=== PATIENT | female | born 1940 | race Caucasian/White ===

== ENCOUNTER → 2016-12-04 | Outpatient (CLI) | payer OTHER, BC ==
[~2016-12-04] MED LIST: AMPH12.5 PO; APOA1CAP PO; ASCO10003 PO; CHOL20007 PO; COEN1CAP28 PO; DESV100T PO; JUICE PLUS PO; MISCCAP80 PO; MULT-506 PO; OMEG10007 PO; VITA1TAB4 PO
--- NOTE | 2016-12-04 10:29 | DIAGNOSTIC IMAGING REPORT ---
BILIARY ULTRASOUND CLINICAL HISTORY: Hepatic cyst COMPARISON STUDY: 11/21/2015 FINDINGS: The pancreas appears sonographically normal. There is a caudate lobe hepatic cyst measuring 15 mm. This remains essentially unchanged in size. The gallbladder appears sonographically normal. There is no right-sided hydronephrosis. The common bile duct measures 4 mm. IMPRESSION: Essentially stable 15 mm caudate lobe hepatic cyst. Otherwise normal study Electronically signed by: Dima Carroll M.D. 12/04/2016 10:27 AM Dictated Date/Time: 12/04/2016 10:25 AM
== END | disposition home or self-care (01) ==
LOC: C.ULTRBC 09:00
PROVIDERS: ATTEND Internal Medicine
DX: K76.89 Other specified diseases of liver (principal)

== ENCOUNTER → 2017-03-05 | Outpatient (CLI) | payer OTHER, BC | END | disposition home or self-care (01) | LOC: C.PAPS 11:28 | PROVIDERS: ATTEND Obstetrics & Gynecology | DX: Z12.4 Encounter for screening for malignant neoplasm of cervix (principal) ==

== ENCOUNTER → 2017-03-05 | Outpatient (CLI) | payer OTHER, BC ==
--- NOTE | 2017-03-05 10:11 | DIAGNOSTIC IMAGING REPORT ---
RIGHT SHOULDER 3 VIEWS CLINICAL HISTORY: Right shoulder pain. FINDINGS: 3 views of the right shoulder are compared to study dated 09/20/2015. The skeletal structures are osteopenic. No fracture or dislocation is seen. Productive degenerative change is noted at the acromioclavicular joint. Mild arthritic change is seen in the greater tuberosity of the humeral head with mild bony sclerosis. The glenohumeral articulation is preserved. The overlying soft tissues are within normal limits. A calcified granuloma is suggested in the right upper lobe. The visualized right lung parenchyma is otherwise clear. IMPRESSION: Osteopenia and mild arthritic change as above. No acute bony abnormality is identified. Electronically signed by: Tomy Rivas M.D. 03/05/2017 10:09 AM Dictated Date/Time: 03/05/2017 10:08 AM
--- NOTE | 2017-03-05 10:13 | DIAGNOSTIC IMAGING REPORT ---
LEFT SHOULDER 3 VIEWS CLINICAL HISTORY: Left shoulder pain. FINDINGS: 3 views of the left shoulder are obtained. No prior studies are available for comparison at the time of dictation. The skeletal structures are osteopenic. No fracture or dislocation is seen. Mild productive degenerative change is noted at the acromioclavicular joint. Mild arthritic change is seen in the greater tuberosity of the humeral head with mild bony sclerosis. The glenohumeral articulation is preserved. The overlying soft tissues are within normal limits. Visualized left lung parenchyma appears clear. IMPRESSION: Osteopenia and mild arthritic change as above. No acute bony abnormality is identified in the left shoulder. Electronically signed by: Tomy Rivas M.D. 03/05/2017 10:10 AM Dictated Date/Time: 03/05/2017 10:09 AM
== END | disposition home or self-care (01) ==
LOC: C.RDSM 14:15
PROVIDERS: ATTEND Physician Assistant
DX: M85.811 Other specified disorders of bone density and structure, right shoulder (principal); M85.812 Other specified disorders of bone density and structure, left shoulder; Z12.4 Encounter for screening for malignant neoplasm of cervix

== ENCOUNTER → 2017-03-11 | Day surgery (SDC) | payer OTHER, BC ==
[2017-02-24 10:05] VITALS: Ht 154.9 cm; Wt 65.5 kg
[~2017-03-11] VITALS: Ht 154.9 cm; Wt 65.5 kg
[~2017-03-11] MED LIST changes: +LIDOCAINE HCL 2% 2 ML VIAL (20MG/ML) ONE; +MIDAZOLAM HCL 1 MG/ML 2ML VIAL ONE; +ONDANSETRON INJ 2 MG/ML 2 ML VIAL ONE; +PROPOFOL IV EMULSION 10 MG/ML 20 ML VIAL IV ONE
[2017-03-11 09:39] VITALS: TEMP 36.5
--- NOTE | 2017-03-11 10:19 | Endo History and Physical ---
History & Physical Date of Service: Mar 11, 2017. Chief Complaint: screening Referring Physician: Dr. Mulu Jolly History of Present Illness 76 yo CM who presents for screening colonoscopy. Past Surgical History Hx Cardiac Surgery: No Hx Internal Defibrillator: No Hx Pacemaker: No Hx Abdominal Surgery: Yes (D&C'S) Hx of Implantable Prosthesis: No Hx Post-Op Nausea and Vomiting: No Hx Cancer Surgery: No Hx Thoracic Surgery: No Hx Orthopedic: Yes (LT/RT CTR, LT FOOT SURGERY) Hx Urinary Tract Surgery: No Family History None Social History Smoking Status: Never Smoker Hx Substance Use: No Hx Alcohol Use: No Allergies Coded Allergies: Nickel (Verified Allergy, Mild, swelling of skin it comes in contact with , 02/16/13) NO KNOWN DRUG ALLERGIES (Verified Allergy, Unknown, ., 02/24/17) Current Medications Reported Home Medications Medications Dose Route/Sig Max Daily Dose Days Date Category Co Q10 (Coenzyme Q10) 50 Mg Cap 200 Mg PO QAM 02/24/17 Reported [place]-3 (Fish Oil) 1 Ea Cap 1 Cap PO TID 02/24/17 Reported Prevagen (Apoaequorin) 10 Mg Cap 1 Cap PO QAM 02/24/17 Reported [Juice Plus] 2 Cap PO BID 02/24/17 Reported Probiotic (Probiotic Product) 1 Cap Cap 1 Tab PO QAM 02/24/17 Reported Vitamin D3 (Cholecalciferol) 2,000 Unit Tab 1 Tab PO QAM 02/24/17 Reported Vitamin C (Ascorbic Acid) 1,000 Mg Tab 1 Tab PO QAM 02/24/17 Reported Vitamin E 400 Unit Tab 1 Tab PO QAM 02/24/17 Reported Pristiq (Desvenlafaxine Succinate) 100 Mg Tab 100 Mg PO QAM 02/24/17 Reported Multivitamin (Multivitamins) Tab 1 Tab PO QAM 02/24/17 Reported Adderall (Amphetamine-Dextroamphetamine) 1 Tab Tab 5 Mg PO QAM 02/24/17 Reported Vital Signs Weight (Kilograms): 65.45 Height (Feet): 5 Height (Inches): 1 Date Time Temp Pulse Resp B/P Pulse Ox O2 Delivery O2 Flow Rate FiO2 03/11/17 09:39 36.5 74 20 119/71 95 Room Air Physical Exam General Appearance: WD/WN, no apparent distress Respiratory/Chest: Auscultation: breath sounds normal Cardiovascular: Heart Auscultation: RRR Abdomen: Bowel Sounds: normal Inspection & Palpation: soft, non-distended, no tenderness, guarding & rebound Assessment and Plan Assessment: 76 yo CM who presents for screening colonoscopy. Plan: Proceed with colonoscopy.
--- NOTE | 2017-03-11 10:54 | GI REPORT ---
Procedure Date: 03/11/2017 10:28 AM Procedure: Colonoscopy Indications: Screening for colorectal malignant neoplasm Medicines: Monitored Anesthesia Care Complications: No immediate complications. Estimated Blood Loss: Estimated blood loss: none. Procedure: Pre-Anesthesia Assessment: - Prior to the procedure, a History and Physical was performed, and patient medications and allergies were reviewed. The patient's tolerance of previous anesthesia was also reviewed. The risks and benefits of the procedure and the sedation options and risks were discussed with the patient. All questions were answered, and informed consent was obtained. Prior Anticoagulants: The patient has taken no previous anticoagulant or antiplatelet agents. ASA Grade Assessment: III - A patient with severe systemic disease. After reviewing the risks and benefits, the patient was deemed in satisfactory condition to undergo the procedure. After I obtained informed consent, the scope was passed under direct vision. Throughout the procedure, the patient's blood pressure, pulse, and oxygen saturations were monitored continuously. The Scope was introduced through the anus and advanced to the terminal ileum. The colonoscopy was performed without difficulty. The patient tolerated the procedure well. The quality of the bowel preparation was good. The terminal ileum, ileocecal valve, appendiceal orifice, and rectum were photographed. Findings: Two sessile polyps were found in the ascending colon. The polyps were 4 to 6 mm in size. These polyps were removed with a hot snare. Resection and retrieval were complete. To prevent bleeding after the polypectomy, two hemostatic clips were successfully placed (MR conditional). There was no bleeding at the end of the procedure. Non-bleeding internal hemorrhoids were found during retroflexion. The hemorrhoids were small. Impression: - Two 4 to 6 mm polyps in the ascending colon, removed with a hot snare. Resected and retrieved. Clips (MR conditional) were placed. - Non-bleeding internal hemorrhoids. Recommendation: - Resume previous diet. - Continue present medications. - Repeat colonoscopy for surveillance based on pathology results. - Return to primary care physician as previously scheduled. Augie Reece DO 03/11/2017 10:53:01 AM This report has been signed electronically. Note Initiated On: 03/11/2017 10:28 AM I attest to the content of the Intraoperative Record and orders documented therein, exceptions below
--- NOTE | 2017-03-11 10:54 | Discharge Instructions ---
Endoscopy Patient Instructions Date / Procedure(s) Performed Mar 11, 2017. Colonoscopy Allergy Information Coded Allergies: Nickel (Verified Allergy, Mild, swelling of skin it comes in contact with , 02/16/13) NO KNOWN DRUG ALLERGIES (Verified Allergy, Unknown, ., 02/24/17) Discharge Date / Findings Mar 11, 2017. Colon polyps Internal hemorrhoids Medication Instructions OK to resume all medications today as prescribed Provider Instructions Activity Restrictions - No exercising or heavy lifting for 24 hours. - Do not drink alcohol the day of the procedure. - Do not drive a car or operate machinery until the day after the procedure. - Do not make any important decisions or sign important papers in 24 hours after the procedure. Following Day: - Return to full activity which may include returning to work/school. Diet Start your diet with liquids and light foods (jello, soup, juice, toast). Then eat your usual diet if not nauseated. Treatment For Common After Affects For mild abdominal pain, bloating, or excessive gas: - Rest - Eat lightly - Lie on right side Follow-Up Information Follow-up with Dr. Mulu Jolly as scheduled Anesthesia Information What You Should Know You have had a procedure that required some medicine to reduce anxiety and discomfort. This treatment is called moderate sedation. After receiving the treatment, you may be sleepy, but you will be able to breathe on your own. The effects of the treatment may last for several hours. Follow these instructions along with Activity/Diet recommendations noted above: * Do NOT do anything where dizziness or clumsiness would be dangerous. * Rest quietly at home today, then you can be up and about tomorrow. * Have a responsible person stay with you the rest of today. * You may have had an I.V. today. If so, you may take the dressing off later today. Recommendations Call your doctor if: * Trouble breathing * Continuous vomiting for more than 24 hours * Temperature above 101 degrees * Severe abdominal pain or bloating * Pain not relieved by pain medicine ordered * There is increased drainage or redness from any incision * A large amount of rectal bleeding greater than 2-3 tablespoons. (If you had a polyp/s removed or have hemorrhoids, a small amount of blood - from the rectum is to be expected.) * You have any unanswered questions or concerns. IN THE EVENT OF A SERIOUS EMERGENCY, GO TO THE NEAREST EMERGENCY ROOM Your discharge instructions were prepared by provider Augie Reece. Patient Instructions Signature Page Amber Guardado Patient (or Guardian) Signature/Date: I have read and understand the instructions given to me by my caregivers. Caregiver/RN/Doctor Signature/Date: The above-named patient and/or guardian has received patient instructions on this date. + Original Patient Signature Page (only) stays with chart. Please make copy for patient.
--- NOTE | 2017-03-11 11:16 | Anesthesiology Progress Note ---
Anesthesia Post Op Note Date & Time Mar 11, 2017 at 11:15 Vital Signs Pain Intensity: 0 Vital Signs Past 12 Hours Date Time Temp Pulse Resp B/P Pulse Ox O2 Delivery O2 Flow Rate FiO2 03/11/17 11:08 63 18 134/77 100 Room Air 03/11/17 10:53 63 16 130/71 98 Room Air 03/11/17 09:39 36.5 74 20 119/71 95 Room Air Notes Mental Status: alert / awake / arousable, participated in evaluation Pt Amnestic to Procedure: Yes Nausea / Vomiting: adequately controlled Pain: adequately controlled Airway Patency, RR, SpO2: stable & adequate BP & HR: stable & adequate Hydration State: stable & adequate Anesthetic Complications: no major complications apparent
[2017-03-11 11:23] VITALS: BP 134/79; PULSE 62; O2SAT 99
== END | disposition home or self-care (01) ==
LOC: C.GI 09:01
PROVIDERS: ATTEND Internal Medicine
DX: Z12.11 Encounter for screening for malignant neoplasm of colon (principal); D12.2 Benign neoplasm of ascending colon; K64.8 Other hemorrhoids; Z98.890 Other specified postprocedural states; Z68.27 Body mass index [BMI] 27.0-27.9, adult

== ENCOUNTER → 2017-03-26 | Outpatient (CLI) | payer OTHER, BC ==
[~2017-03-26] MED LIST changes: -LIDOCAINE HCL 2% 2 ML VIAL (20MG/ML) ONE; -MIDAZOLAM HCL 1 MG/ML 2ML VIAL ONE; -ONDANSETRON INJ 2 MG/ML 2 ML VIAL ONE; -PROPOFOL IV EMULSION 10 MG/ML 20 ML VIAL IV ONE
--- NOTE | 2017-03-26 15:49 | MAMMOGRAPHY REPORT ---
BILATERAL DIGITAL SCREENING MAMMOGRAM WITH CAD: 03/26/2017 CLINICAL HISTORY: Routine screening. Patient has no complaints. TECHNIQUE: Bilateral CC and MLO views were obtained. Current study was also evaluated with a Comput er Aided Detection (CAD) system. COMPARISON: Comparison is made to exams dated: 03/25/2016 mammogram, 03/24/2015 mammogram, 03/23/2014 ma mmogram, 03/22/2013 mammogram, 03/18/2012 mammogram, and 10/16/2010 mammogram - . BREAST COMPOSITION: There are scattered areas of fibroglandular density in both breasts. FINDINGS: A focal asymmetry in the right upper outer quadrant has been stable on all available prior mammograms dating back to at least 06/29/2007, therefore likely benign. No new suspicious mass, ar chitectural distortion or cluster of microcalcifications is seen. IMPRESSION: ACR BI-RADS CATEGORY 1: NEGATIVE There is no mammographic evidence of malignancy. A 1 year screening mammogram is recommended. The p atient will receive written notification of the results. Approximately 10% of breast cancers are not detected with mammography. A negative mammographic repor t should not delay biopsy if a clinically suggestive mass is present. Alina Mcbride M.D. ay/:03/26/2017 14:20:46 Body Art Technician: Mandy JACKSON)(M), letter sent: Normal 1/2 BI-RADS Code: ACR BI-RADS Category 1: Negative
== END | disposition home or self-care (01) ==
LOC: C.MAMM 11:21
PROVIDERS: ATTEND Obstetrics & Gynecology
DX: Z12.31 Encounter for screening mammogram for malignant neoplasm of breast (principal)

== ENCOUNTER → 2017-06-02 | Outpatient (CLI) | payer OTHER, BC ==
[2017-06-02 11:32] LABS: ESTIMATED AVERAGE GLUCOSE 120 mg/dl; HA1C FLAG Normal (Normal)
[2017-06-02 11:33] LABS: ALT/SGPT 34 U/L (12-78); AST/SGOT 22 U/L (15-37); BLOOD UREA NITROGEN 15 mg/dl (7-18); BUN/CREATININE RATIO 17.4 (10-20); CALCIUM 9.1 mg/dl (8.5-10.1); CARBON DIOXIDE 29 mmol/L (21-32); CHLORIDE 102 mmol/L (98-107); CREATININE 0.86 mg/dl (0.60-1.20); GLUCOSE 87 mg/dl (70-99); POTASSIUM 4.1 mmol/L (3.5-5.1); SODIUM 137 mmol/L (136-145)
[2017-06-02 11:35] LABS: ALB/GLOB RATIO 1.1 (0.9-2); ALKALINE PHOSPHATASE 58 U/L (45-117); CHOLESTEROL 250 mg/dl (0-200); CHOLESTEROL/HDL RATIO 3.2; HDL CHOLESTEROL 78 mg/dl; LDL CHOLESTEROL CALCULATED 152 mg/dl; TRIGLYCERIDES 98 mg/dl (0-150); VERY LOW DENSITY LIPOPROT CALC 20 mg/dl
== END | disposition home or self-care (01) ==
LOC: C.LABBC 08:30
PROVIDERS: ATTEND Family Medicine
DX: E78.00 Pure hypercholesterolemia, unspecified (principal); R73.03 Prediabetes

== ENCOUNTER → 2017-09-11 | Outpatient (CLI) | payer OTHER, BC ==
[2017-09-11 17:03] LABS: ALT/SGPT 31 U/L (12-78); AST/SGOT 22 U/L (15-37); BLOOD UREA NITROGEN 13 mg/dl (7-18); BUN/CREATININE RATIO 13.8 (10-20); CALCIUM 9.2 mg/dl (8.5-10.1); CARBON DIOXIDE 24 mmol/L (21-32); CHLORIDE 103 mmol/L (98-107); CREATININE 0.97 mg/dl (0.60-1.20); GLUCOSE 94 mg/dl (70-99); POTASSIUM 4.2 mmol/L (3.5-5.1); SODIUM 136 mmol/L (136-145)
[2017-09-11 17:14] LABS: ALKALINE PHOSPHATASE 62 U/L (45-117)
[2017-09-12 07:02] LABS: ESTIMATED AVERAGE GLUCOSE 114 mg/dl; HA1C FLAG Normal (Normal)
== END | disposition home or self-care (01) ==
LOC: C.LABBC 14:36
PROVIDERS: ATTEND Nurse Practitioner Family
DX: F41.9 Anxiety disorder, unspecified (principal); F90.9 Attention-deficit hyperactivity disorder, unspecified type; R73.03 Prediabetes

== ENCOUNTER → 2018-02-16 | Outpatient (CLI) | payer OTHER, BC | END | disposition home or self-care (01) | LOC: C.LABSPEC 13:45 | PROVIDERS: ATTEND Obstetrics & Gynecology | DX: L02.215 Cutaneous abscess of perineum (principal) ==

== ENCOUNTER → 2018-03-17 | Outpatient (CLI) | payer OTHER, BC ==
[2018-03-17 13:26] LABS: BASO % 0.9 %; BASO ABS # 0.05 K/uL (0-0.2); EOS ABS # 0.11 K/uL (0-0.5); HEMATOCRIT 42.7 % (37-47); HEMOGLOBIN 14.3 g/dL (12.0-16.0); IG# 0.01 K/uL (0.00-0.02); LYMPH % 42.5 %; LYMPH ABS # 2.34 K/uL (1.2-3.4); MEAN CELL VOLUME 90.3 fL (80-100); MEAN CORPUSCULAR HEMOGLOBIN 30.2 pg (25-34); MEAN CORPUSCULAR HGB CONC 33.5 g/dl (32-36); MEAN PLATELET VOLUME 10.6 fL (7.4-10.4); MONO % 10.7 %; MONO ABS # 0.59 K/uL (0.11-0.59); NEUT % 43.7 %; PLATELET COUNT 304 K/uL (130-400); RED CELL DISTRIBUTION WIDTH CV 12.6 % (11.5-14.5); RED CELL DISTRIBUTION WIDTH SD 41.7 fL (36.4-46.3)
[2018-03-17 14:03] LABS: HEMOGLOBIN A1C 5.8 % (4.5-5.6)
[2018-03-17 14:09] LABS: ALBUMIN 3.6 gm/dl (3.4-5.0); ALT/SGPT 28 U/L (12-78); AST/SGOT 20 U/L (15-37); BLOOD UREA NITROGEN 15 mg/dl (7-18); CALCIUM 9.1 mg/dl (8.5-10.1); CARBON DIOXIDE 29 mmol/L (21-32); CHOLESTEROL 245 mg/dl (0-200); CREATININE 1.02 mg/dl (0.60-1.20); GLUCOSE 92 mg/dl (70-99); POTASSIUM 4.1 mmol/L (3.5-5.1); SODIUM 137 mmol/L (136-145)
[2018-03-17 14:19] LABS: ALKALINE PHOSPHATASE 53 U/L (45-117); LDL CHOLESTEROL CALCULATED 154 mg/dl; TOTAL PROTEIN 7.5 gm/dl (6.4-8.2)
== END | disposition home or self-care (01) ==
LOC: C.LABBC 09:29
PROVIDERS: ATTEND Nurse Practitioner Family
DX: E78.00 Pure hypercholesterolemia, unspecified (principal); F41.9 Anxiety disorder, unspecified; R73.03 Prediabetes

== ENCOUNTER → 2018-03-27 | Outpatient (CLI) | payer OTHER, BC ==
--- NOTE | 2018-03-30 14:33 | MAMMOGRAPHY REPORT ---
BILATERAL DIGITAL SCREENING MAMMOGRAM TOMOSYNTHESIS WITH CAD: 03/27/2018 CLINICAL HISTORY: Routine screening. Patient has no complaints. TECHNIQUE: Breast tomosynthesis in addition to standard 2D mammography was performed. Current study was also evaluated with a Computer Aided Detection (CAD) system. COMPARISON: Comparison is made to exams dated: 03/26/2017 mammogram, 03/25/2016 mammogram, 03/24/2015 mamm ogram, 03/23/2014 mammogram, 03/22/2013 mammogram, and 03/18/2012 mammogram - [facility] er. BREAST COMPOSITION: There are scattered areas of fibroglandular density in both breasts. FINDINGS: No suspicious masses, calcifications, or areas of architectural distortion are noted in ei ther breast. There has been no significant interval change compared to prior exams. Scattered bilater al benign-appearing calcifications are not significantly changed. Focal asymmetry in the right upper outer quadrant is stable dating back to at least the 2007 exam. IMPRESSION: ACR BI-RADS CATEGORY 2: BENIGN There is no mammographic evidence of malignancy. A 1 year screening mammogram is recommended. The pa tient will receive written notification of the results. Approximately 10% of breast cancers are not detected with mammography. A negative mammographic report should not delay biopsy if a clinically suggestive mass is present. Sofía Aguilar M.D. /:03/27/2018 14:12:07 Antenna Specialist: Argenis ROBERT(Ole)(Philippe)([place]), [facility] letter sent: Normal 1/2 BI-RADS Code: ACR BI-RADS Category 2: Benign
== END | disposition home or self-care (01) ==
LOC: C.MAMM 11:32
PROVIDERS: ATTEND Obstetrics & Gynecology
DX: Z12.31 Encounter for screening mammogram for malignant neoplasm of breast (principal)